=== PATIENT | male | born 1995 | race Caucasian/White ===

== ENCOUNTER 2017-01-15 23:39 | Emergency (ER) | payer BC ==
[2017-01-15] MEDS ORDERED: LIDOCAINE 1% 10 ML VIAL INJ ONE (23:52)
[2017-01-15] MEDS ORDERED: POVIDONE IODINE 10 % 15 ML UD TOP ONE (23:53)
[2017-01-15 23:57] VITALS: BP 156/78; TEMP 100; O2SAT 95
--- NOTE | 2017-01-16 00:23 | RAD ---
PROCEDURE: Foot,Left 3 Views CLINICAL HISTORY: lac bw 2nd and 3rd toes INDICATION: Same as above COMPARISON: None . TECHNIQUE: 3.0 Views of the left foot were done. FINDINGS: There is no evidence of acute fractures or dislocation involving the bones of the left foot. There is no evidence of any periosteal reactions. The joint spaces are relatively well-maintained. There is no evidence of bony tarsal coalition. The soft tissues are radiographically unremarkable. There is no visualization of any radiopaque foreign bodies in the visualized soft tissues. IMPRESSION: Negative for acute findings in the left foot Place of interpretation: [id number]. Electronically signed by: Mario Jordan MD 01/16/2017 12:23 AM CDT Workstation: [id number]
[2017-01-16] MEDS ORDERED: NEOMYCIN-BACITRACIN-POLYMYXIN 0.9 GM UD TOP ONE (00:24)
--- NOTE | 2017-01-16 00:31 | ED.PDOC ---
History of Present Illness - General Chief Complaint: Laceration Stated Complaint: Laceration between toes Time Seen by Provider: 01/15/17 23:50 Source: patient Exam Limitations: no limitations - History of Present Illness Initial Comments: the patient is a 21-year-old male presenting to the emergency room secondary to a laceration that developed between the second and third toes of his left foot. The patient displayed the toes while playing beach volleyball. The laceration is three-quarter inch in length and approximately a quarter inch deep. It is hemostatic at this time but does have significant amount of sand in the cut. No other injuries. He is neurovascularly preserved. Is not diabetic. Timing/Duration: momentarily Severity: mild Improving Factors: immobilization Worsening Factors: movement Associated Symptoms: denies symptoms Allergies/Adverse Reactions: Allergies NO KNOWN ALLERGY Allergy (Verified 01/15/17 23:55) Home Medications: Ambulatory Orders Sulfa/Trimeth 800/160 (Ds) Tab [Bactrim DS Tab] 1 ea PO DAILY #7 tab 01/16/17 Review of Systems - Review of Systems Constitutional: States: no symptoms reported EENTM: States: no symptoms reported Respiratory: States: no symptoms reported Cardiology: States: no symptoms reported Gastrointestinal/Abdominal: States: no symptoms reported Genitourinary: States: no symptoms reported Musculoskeletal: States: see HPI Skin: States: see HPI Neurological: States: no symptoms reported Endocrine: States: no symptoms reported All other Systems: No Change from Baseline Past Medical History (General) - Patient Medical History Hx Stroke: No Hx Congestive Heart Failure: No Hx Diabetes: No - Vaccination History Hx Tetanus, Diphtheria Vaccination: Yes Hx Influenza Vaccination: No Hx Pneumococcal Vaccination: No - Social History Hx Tobacco Use: No Family Medical History - Family History Father Family History: No Known Living Status: Still Living Physical Exam - Physical Exam General Appearance: Alert, Comfortable, No apparent distress Eye Exam: bilateral normal Ears, Nose, Throat: hearing grossly normal Neck: full range of motion Respiratory: no respiratory distress, no accessory muscle use Cardiovascular/Chest: normal peripheral pulses, no edema Peripheral Pulses: dorsalis pedis,right: 2+, dorsalis pedis,left: 2+, posterior tibialis,right: 2+, posterior tibialis,left: 2+ Extremity: normal range of motion, no pedal edema, no calf tenderness, normal capillary refill 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 Comments: Vital Signs - 24 hr 01/15/17 23:55 Temperature 100.0 F H Pulse Rate [ 93 H Left Radial] Respiratory 20 Rate Blood Pressure 156/78 [Left Arm] O2 Sat by Pulse 95 Oximetry Progress - Progress Progress: 01/16/17 00:31 the patient is a 21-year-old male sustaining a three-quarter inch laceration between the second and third digits of the left foot. Risk and benefits of repair explained and patient agrees to proceed. Saline with Betadine was used for irrigation to clean the wound. 1% Xylocaine without epinephrine was used 2 cc for local anesthetic. 5 simple sutures of 4-0 Ethilon were used to reapproximation. Antibiotic ointment was applied and the second and third toes were kishor taped together. Estimated blood loss 10 cc in total. X-ray shows no evidence of fracture or dislocation. Sutures need to be removed in 10 days. He received a dose of Bactrim here and will be placed on Bactrim daily for 7 days. He needs to keep the area dry for at least 48 hours. ER warnings are given for any worsening or evidence of infection. Departure - Departure Clinical Impression: Accidental laceration ICD-10 Supporting Text: the left foot. Initial evaluation. Disposition: Discharge to Home or Self Care Condition: Fair Departure Forms: ED Discharge - Pt. Copy, Patient Portal Self Enrollment Instructions: DI for Laceration Repair -- Finger Diet: regular diet Activity: increase activity as tolerated Prescriptions: Sulfa/Trimeth 800/160 (Ds) Tab [Bactrim DS Tab] 1 ea PO DAILY #7 tab Home Medications: Ambulatory Orders Sulfa/Trimeth 800/160 (Ds) Tab [Bactrim DS Tab] 1 ea PO DAILY #7 tab 01/16/17 Additional Instructions: the patient is a 21-year-old male sustaining a three-quarter inch laceration between the second and third digits of the left foot. Risk and benefits of repair explained and patient agrees to proceed. Saline with Betadine was used for irrigation to clean the wound. 1% Xylocaine without epinephrine was used 2 cc for local anesthetic. 5 simple sutures of 4-0 Ethilon were used to reapproximation. Antibiotic ointment was applied and the second and third toes were kishor taped together. Estimated blood loss 10 cc in total. X-ray shows no evidence of fracture or dislocation. Sutures need to be removed in 10 days. He received a dose of Bactrim here and will be placed on Bactrim daily for 7 days. He needs to keep the area dry for at least 48 hours. ER warnings are given for any worsening or evidence of infection.
[2017-01-16] MEDS: SULFA/TRIMETH 800/160 (DS) TAB 1 EA TAB PO ONE (00:32)
== END 2017-01-16 00:44 | disposition home or self-care (01) ==
LOC: ER 23:39
DX: S91.312A Laceration without foreign body, left foot, initial encounter (principal); X58.XXXA Exposure to other specified factors, initial encounter; Y93.68 Activity, volleyball (beach) (court)